=== PATIENT | male | born 1995 | race Caucasian/White ===

== ENCOUNTER 2017-12-18 23:38 | Emergency (ER) | payer MEDICAID ==
[~2017-12-18] VITALS: Ht 182.9 cm; Wt 113.4 kg
[2017-12-18] MEDS ORDERED: KLONOPIN0.5 MG ORAL (23:50)
[2017-12-18] MEDS ORDERED: DIAZEPAM10 MG ORAL (23:50)
[2017-12-18] MEDS ORDERED: RESTORIL7.5 MG ORAL (23:50)
[2017-12-18] MEDS ORDERED: QUETIAPINE FUMA25 MG ORAL (23:50)
[2017-12-18] MEDS ORDERED: ZOLOFT25 MG ORAL (23:50)
[2017-12-18] MEDS ORDERED: HALOPERIDOL0.5 MG ORAL (23:50)
[2017-12-19 00:05] VITALS: BP 125/60
--- NOTE | 2017-12-19 00:37 | Emergency Room Report ---
History of Present Illness General Chief Complaint: Behavioral Complaint Source: Patient Present Illness HPI This is a 22-year-old male with a psych history. He presents with chief complaint of agitation. He is got a new psychiatrist. He was not happy with his psychiatrist because his psychiatrist changes medication around. Haldol was DC. Seroquel was cut down from 400 mg twice a day to 40 mg once a day. His car diazepam was cut down from 2 mg 3 times a day 21 mg 3 times a day. His Xanax was also DC. His Restoril was cut down from 30 mg to 50 mg. His Zoloft was also DC. He is not happy with this because he wanted his dosage back to where was before. He call his sample case porter who told him to go to [facility]. Because his was around a corner he called 911. He said he is not suicidal or homicidal. He just want to be placed back on his medication. He has follow-up with his psych counselor tomorrow. Denies any other complaint. Denies any drug use. Allergies: Coded Allergies: ERYTHROMYCIN BASE (Verified Allergy, Unknown, 12/18/17) Patient History Past Medical History: see triage record, old chart reviewed, psych hx Family History: none Social History: tobacco use Immunizations: other Reviewed Nursing Documentation: PMH: Agreed; PSxH: Agreed Nursing Documentation-PMH Hx Hypertension: Yes History Of Psychiatric Problem: Yes - schizo,psychosis Review of Systems ENT: Denies: sore throat Cardiovascular: Denies: chest pain, palpitations Gastrointestinal/Abdominal: Denies: nausea, vomiting, diarrhea Musculoskeletal: Denies: back problems Skin: Denies: rash Neurological: Denies: MALONEY, seizures All Other Systems: negative except mentioned in HPI Physical Exam Vital Signs Date Time Temp Pulse Resp B/P (MAP) Pulse Ox O2 Delivery O2 Flow Rate FiO2 12/18/17 23:40 98.2 100 18 125/60 100 Room Air 98.2 vitals normal Sp02 EP Interpretation: reviewed, normal General Appearance: alert/responsive, no apparent distress, non-toxic Head: normocephalic, atraumatic Eyes: PERRL, EOMI ENT: oropharynx normal Neck: supple/symm/no masses Respiratory: effort normal, no rhonchi, no wheezing Cardiovascular: no murmur, gallop, rub Gastrointestinal: non-tender, no mass, non-distended, no rebound/guarding, normal bowel sounds Musculoskeletal: gait & station normal Neurologic: oriented x3, sensory intact, motor strength/tone normal Suicide Risk Assessment: Suicidal Ideation: No Had intent to initiate attempt: No Pt's plan for suicide attempt: No Has means to complete attempt: No Skin: no rash, normal palpation Medical Decision Making Diagnostic Impression: Primary Impression: Behavioral disorder ER Course Patient presents with agitation. He said he wants his medication back to the dosing that was before. I explained to the patient that I would not do that because his psychiatrist has him on a plan. On 12/12/2017 he had 30 tablets of Restoril 30 mg from his previous psychiatrist. On 12/13/2017 he picked up 30 tablets of Restoril 15 mg from his current psychiatrist. There is no criteria for 5150. We'll discharge the patient home. Last Vital Signs Date Time Temp Pulse Resp B/P (MAP) Pulse Ox O2 Delivery O2 Flow Rate FiO2 12/18/17 23:40 98.2 100 18 125/60 100 Room Air 98.2 Status: unchanged Disposition: HOME, SELF-CARE Condition: Stable Referrals: NOT CHOSEN [facility]/,REFERRING (PCP) Patient Instructions: Self-Destructive Behavior Additional Instructions: Follow-up with your psychiatrist in one to 2 days. Return if symptom worsen. LISA MILLER M.D. Dec 19, 2017 00:37
[2017-12-19 00:42] VITALS: BP 125/60
== END 2017-12-19 00:42 | disposition home or self-care (01) ==
LOC: EDBD 23:38 → EMR 23:56
DX: F91.9 Conduct disorder, unspecified (principal); I10 Essential (primary) hypertension
CPT/HCPCS: 99283

== ENCOUNTER 2018-04-07 10:50 | Inpatient (IN) | payer MEDICAID ==
[~2018-04-07] VITALS: Ht 177.8 cm; Wt 122.5 kg
[2018-04-07] VITALS (13 sets, daily range): BP systolic 87–121; BP diastolic 33–78
[~2018-04-07 10:50] MED LIST: DIAZEPAM10 MG ORAL; HALOPERIDOL0.5 MG ORAL; KLONOPIN0.5 MG ORAL; QUETIAPINE FUMA25 MG ORAL; RESTORIL7.5 MG ORAL; ZOLOFT25 MG ORAL
[2018-04-07] MEDS ORDERED: Activated Charcoal 50gm/240ml Btl ORAL ONE ×2 (11:00→12:04)
[2018-04-07 11:51] LABS: BASOPHILS % (AUTO) 0.6 % (0.0-2.0); EOSINOPHILS % (AUTO) 0.5 % (0.0-3.0); HEMATOCRIT 51.2 % (42.0-52.0); HEMOGLOBIN 16.9 G/DL (14.2-18.0); LYMPHOCYTES % (AUTO) 37.9 % (20.0-45.0); MEAN CORPUSCULAR VOLUME 91 FL (80-99); MONOCYTES % (AUTO) 4.5 % (1.0-10.0); NEUTROPHILS % (AUTO) 56.5 % (45.0-75.0); PLATELET COUNT 130 K/UL (150-450); RED BLOOD COUNT 5.62 M/UL (4.70-6.10); RED CELL DISTRIBUTION WIDTH 11.7 % (11.6-14.8); WHITE BLOOD COUNT 7.4 K/UL (4.8-10.8)
[2018-04-07 11:53] LABS: APPEARANCE,URINE CLEAR; BILIRUBIN, URINE NEGATIVE (NEGATIVE); COLOR,URINE PALE YELLOW; GLUCOSE, URINE (UA) NEGATIVE (NEGATIVE); KETONES,URINE NEGATIVE (NEGATIVE); LEUKOCYTE ESTERASE ,URINE NEGATIVE (NEGATIVE); NITRITE,URINE NEGATIVE (NEGATIVE); PH,URINE 6 (4.5-8.0); PROTEIN,URINE 1+ (NEGATIVE); UROBILINOGEN,URINE NORMAL MG/DL (0.0-1.0)
[2018-04-07 12:05] LABS: ANION GAP 15 mmol/L (5-15); BLOOD UREA NITROGEN 9 mg/dL (7-18); CALCIUM 9.5 MG/DL (8.5-10.1); CARBON DIOXIDE 21 MMOL/L (21-32); CHLORIDE 105 MMOL/L (98-107); POTASSIUM 3.6 MMOL/L (3.5-5.1); SODIUM 141 MMOL/L (136-145)
[2018-04-07 12:09] LABS: ALANINE AMINOTRANSFERASE 30 U/L (12-78); ALBUMIN 4.1 G/DL (3.4-5.0); ALBUMIN/GLOBULIN RATIO 1.1 (1.0-2.7); ALKALINE PHOSPHATASE 77 U/L (46-116); ASPARTATE AMINO TRANSFERASE 25 U/L (15-37); BILIRUBIN,TOTAL 0.5 MG/DL (0.2-1.0)
[2018-04-07] MEDS ORDERED: Lidocaine 2% 100mg/5ml Carp ONE (12:23)
--- NOTE | 2018-04-07 12:23 | Emergency Room Report ---
History of Present Illness General Chief Complaint: Overdose Source: Patient, Family Member Present Illness HPI Patient presents after overdosing on multiple medications. Many allegedly were not his. He has 2 bottles of Flexeril - large quantities, now empty. He also was drinking alcohol. He states he took about 180 tablets. At the time he wanted to end his life. He states right now he is asking for help. He says he took it anywhere from 45 minutes ago to 2 hours. Dad feels stopping Thorazine 1-2 weeks ago may have contributed. Denies pain. No vomiting after ingestion. Not answering many questions. Seen 12/18/17 requesting more Restoril, but had fill 2 prescriptions. History from then: This is a 22-year-old male with a psych history. He presents with chief complaint of agitation. He is got a new psychiatrist. He was not happy with his psychiatrist because his psychiatrist changes medication around. Haldol was DC. Seroquel was cut down from 400 mg twice a day to 40 mg once a day. His car diazepam was cut down from 2 mg 3 times a day 21 mg 3 times a day. His Xanax was also DC. His Restoril was cut down from 30 mg to 50 mg. His Zoloft was also DC. He is not happy with this because he wanted his dosage back to where was before. He call his special education case manager who told him to go to [facility]. Because his was around a corner he called 911. He said he is not suicidal or homicidal. He just want to be placed back on his medication. He has follow-up with his psych counselor tomorrow. Denies any other complaint. Denies any drug use. Allergies: Coded Allergies: ERYTHROMYCIN BASE (Verified Allergy, Unknown, 12/18/17) LORAZEPAM (Verified Allergy, Unknown, 04/07/18) Patient History Limited by: medical condition Past Medical History: see triage record Social History: Reports: alcohol use, drug use; Denies: smoking Reviewed Nursing Documentation: PMH: Agreed; PSxH: Agreed Nursing Documentation-PMH Past Medical History: No History, Except For Hx Hypertension: Yes History Of Psychiatric Problem: Yes Review of Systems All Other Systems: limited Physical Exam Vital Signs Date Time Temp Pulse Resp B/P (MAP) Pulse Ox O2 Delivery O2 Flow Rate FiO2 04/07/18 10:49 98.6 72 14 123/69 99 Room Air Sp02 EP Interpretation: reviewed, normal General Appearance: no apparent distress, other - slurred speech Head: normocephalic, atraumatic Eyes: bilateral eye PERRL, bilateral eye Scleral Injection ENT: moist mucus membranes Neck: full range of motion Respiratory: lungs clear, normal breath sounds Cardiovascular #1: tachycardia Cardiovascular #2: 2+ radial (L) Gastrointestinal: non tender, non-distended, decreased bowel sounds, overweight Musculoskeletal: back normal, normal range of motion, other - unsteady on feet Neurologic: oriented x3, motor strength/tone normal, sensory intact, other - lethargic but sits. + gag, Ataxic, slurred words Psychiatric: depressed affect Suicide Risk Assessment: Suicidal Ideation: Yes Had intent to initiate attempt: Yes Pt's plan for suicide attempt: Yes Has means to complete attempt: Yes Skin: no rash Procedures Critical Care Time Critical Care Time Total Critical Care Time: 90 min bedside evaluation and treatment excludes procedures (EKG, intubation). Reason for critical care: OD, resp failure Possible complications: hypotension, hypertension, OH, shock, arrhythmias, metabolic acidosis, end organ damage, respiratory failure. Interventions: IV hydration, intubation, gastric lavage and charcoal Course: Patient post polypharmacy OD. Initially awake and charcoal ordered. Stupor and not protect airway - intubation. OG placed and lavage and charcoal under my direction. Discussion with admitting MD and also several discussions with Dad. Sedation begun as coughing on tube. Improved but critical. Poison control consulted. Consultations: nursing staff, EMS, family, RT, poison control Performed by: Dr. Sung Tolerated well condition = critical Intubation Intubation : Consent: Emergent Intubation Method: orotracheal Tube Size (cm): 7.5 Medications: Rocuronium Breath Sounds after Intubation: equal Post Intubation Xray: Yes Attempts: One Patient Tolerated: Well Complications: None Progress Because of clenched teeth, Rocuronium given. After, intubation with ease 12:24 Medical Decision Making Diagnostic Impression: Primary Impression: Drug overdose Qualified Codes: T50.902A - Poisoning by unspecified drugs, medicaments and biological substances, intentional self-harm, initial encounter Additional Impressions: Stupor Respiratory failure Qualified Codes: J96.01 - Acute respiratory failure with hypoxia; J96.02 - Acute respiratory failure with hypercapnia ER Course Patient presents soon after intentional OD on multiple medications and alcohol. DDx: Suicide gesture, exacerbation of schizoaffective disorder, alcohol intoxication, electrolyte abnormalities, polypharmacy overdose amongst others. Patient is awake at the moment and charcoal has been ordered. He recently ingested the pills and will be observed for possible respiratory depression. When awake he will need psychiatric evaluation. At this point, supportive care and work to give charcoal. EKG with ST without QT prolongation. CXR poor inspiration. BAL elevated. Tox + benzos. Before receiving [place], patient more somnolent. Abscent Gag. Min response to stimuli. Intubated. CXR good placement. Discussed with Dad. OG tube with lavage and Charcoal instilled. White fluid without pill fragments. Some cough. Lidocaine inhaled. Also sedation ordered. Noted "lorazepam" allergy which dad states was to stop benzos. Versed drip ordered. Admit ICU Dr. Menjivar. Sedation working. Less tachycardia. NS hydration continuing. Discussed with Dad again with Dr. Way. Midazolam drip ordered. Laboratory Tests Test 04/07/18 11:40 04/07/18 13:30 White Blood Count 7.4 K/UL (4.8-10.8) Red Blood Count 5.62 M/UL (4.70-6.10) Hemoglobin 16.9 G/DL (14.2-18.0) Hematocrit 51.2 % (42.0-52.0) Mean Corpuscular Volume 91 FL (80-99) Mean Corpuscular Hemoglobin 30.1 PG (27.0-31.0) Mean Corpuscular Hemoglobin Concent 33.0 G/DL (32.0-36.0) Red Cell Distribution Width 11.7 % (11.6-14.8) Platelet Count 130 K/UL (150-450) L Mean Platelet Volume 7.8 FL (6.5-10.1) Neutrophils (%) (Auto) 56.5 % (45.0-75.0) Lymphocytes (%) (Auto) 37.9 % (20.0-45.0) Monocytes (%) (Auto) 4.5 % (1.0-10.0) Eosinophils (%) (Auto) 0.5 % (0.0-3.0) Basophils (%) (Auto) 0.6 % (0.0-2.0) Urine Color Pale yellow Urine Appearance Clear Urine pH 6 (4.5-8.0) Urine Specific [place] 1.010 (1.005-1.035) Urine Protein 1+ (NEGATIVE) H Urine Glucose (UA) Negative (NEGATIVE) Urine Ketones Negative (NEGATIVE) Urine Blood Negative (NEGATIVE) Urine Nitrite Negative (NEGATIVE) Urine Bilirubin Negative (NEGATIVE) Urine Urobilinogen Normal MG/DL (0.0-1.0) Urine Leukocyte Esterase Negative (NEGATIVE) Urine RBC 0 /HPF (0 - 0) Urine WBC 0-2 /HPF (0 - 0) Urine Squamous Epithelial Cells None /LPF (NONE/OCC) Urine Bacteria None /HPF (NONE) Sodium Level 141 MMOL/L (136-145) Potassium Level 3.6 MMOL/L (3.5-5.1) Chloride Level 105 MMOL/L (98-107) Carbon Dioxide Level 21 MMOL/L (21-32) Anion Gap 15 mmol/L (5-15) Blood Urea Nitrogen 9 mg/dL (7-18) Creatinine 1.0 MG/DL (0.55-1.30) Estimate Glomerular Filtration Rate > 60 mL/min (>60) Glucose Level 99 MG/DL (74-106) Calcium Level 9.5 MG/DL (8.5-10.1) Total Bilirubin 0.5 MG/DL (0.2-1.0) Aspartate Amino Transferase (AST) 25 U/L (15-37) Alanine Aminotransferase (ALT) 30 U/L (12-78) Alkaline Phosphatase 77 U/L (46-116) Total Protein 7.8 G/DL (6.4-8.2) Albumin 4.1 G/DL (3.4-5.0) Globulin 3.7 g/dL Albumin/Globulin Ratio 1.1 (1.0-2.7) Salicylates Level 4.1 ug/mL (2.8-20) Urine Opiates Screen Negative (NEGATIVE) Acetaminophen Level < 2 MCG/ML (10-30) L Urine Barbiturates Screen Negative (NEGATIVE) Phencyclidine (PCP) Screen Negative (NEGATIVE) Urine Amphetamines Screen Negative (NEGATIVE) Urine Benzodiazepines Screen Positive (NEGATIVE) H Urine Cocaine Screen Negative (NEGATIVE) Urine Marijuana (THC) Screen Negative (NEGATIVE) Serum Alcohol 232 mg/dL Arterial Blood pH 7.349 (7.350-7.450) Arterial Blood Partial Pressure CO2 35.3 mmHg (35.0-45.0) Arterial Blood Partial Pressure O2 157.7 mmHg (75.0-100.0) H Arterial Blood HCO3 19.0 mmol/L (22.0-26.0) L Arterial Blood Oxygen Saturation 98.7 % (95-100) Arterial Blood Base Excess -5.7 (-2-2) L Raul Test N/a EKG Diagnostic Results Rate: tachycardiac ST Segments: no acute changes Rhythm Strip Diag. Results EP Interpretation: yes Rhythm: no PVC's, no ectopy, other - ST Chest X-Ray Diagnostic Results Chest X-Ray Diagnostic Results #1: Chest X-Ray Ordered: Yes # of Views/Limited/Complete: 1 View Indication: Other EP Interpretation: Yes Interpretation: no consolidation, no effusion, no pneumothorax, other - poor insp Impression: Other Electronically Signed by: Electronically signed by Ankush Sung MD Chest X-Ray Diagnostic Results #2: Chest X-Ray Ordered: Yes # of Views/Limited/Complete: 1 View Indication: Other EP Interpretation: Yes Interpretation: no consolidation, no effusion, no pneumothorax, other - ET good Impression: Other Electronically Signed by: Electronically signed by Ankush Sung MD Other X-Ray Diagnostic Results Other X-Ray Diagnostic Results : X-Ray ordered: abd # of Views/Limited Vs Complete: 1 View Indication: Other EP Interpretation: Yes Interpretation: nonspecific bowel gas, no sbo, other - NG in place Impression: Other Electronically Signed by: Electronically signed by Ankush Sung MD Last Vital Signs Date Time Temp Pulse Resp B/P (MAP) Pulse Ox O2 Delivery O2 Flow Rate FiO2 04/07/18 16:48 118 16 30 04/07/18 16:43 97.8 115/67 100 Endotracheal Tube 04/07/18 16:30 60.0 Status: improved Disposition: ADMITTED INPATIENT Condition: Critical [facility]errals: [facility]ERR[facility] (PCP) Ankush Sung MD Apr 07, 2018 12:23
[2018-04-07] MEDS ORDERED: Zemuron 50mg/5ml Inj IV ONE ×2 (12:30→17:45)
--- NOTE | 2018-04-07 14:04 | Diagnostic Imaging Report ---
EXAM: XR Chest, 1 View CLINICAL HISTORY: S/P INTUB TECHNIQUE: Frontal view of the chest. COMPARISON: No relevant prior studies available. FINDINGS: Lungs: Reduced lung volumes. Bilateral airspace opacities. Pleural space: Unremarkable. No pneumothorax. Heart: Unremarkable. No cardiomegaly. Mediastinum: Unremarkable. Bones/joints: No acute fracture. Tubes, lines and devices: Endotracheal tube about 3.3 cm above the farrah. IMPRESSION: 1. Endotracheal tube about 3.3 cm above the farrah. 2. Reduced lung volumes. Bilateral airspace opacities. Could be edema or pneumonia. There is a broader differential.
[2018-04-07] MEDS ORDERED: Lidocaine 1% MPF 10mg/ml 5ml HHN ONE (14:30)
--- NOTE | 2018-04-07 14:34 | Diagnostic Imaging Report ---
EXAM: XR Abdomen, 1 View CLINICAL HISTORY: TUBE PLCMT TECHNIQUE: Frontal supine view of the abdomen/pelvis. COMPARISON: No relevant prior studies available. FINDINGS: Gastrointestinal tract: Nonspecific bowel gas pattern with the relative paucity of small bowel gas. There is a distended small bowel loop in the central abdomen. Bones/joints: No acute fracture. Tubes, lines and devices: Enteric tube in the stomach. IMPRESSION: Enteric tube in the stomach.
[2018-04-07] MEDS ORDERED: Midazolam 2mg/2ml Inj IVP ONE (15:15)
[2018-04-07] MEDS ORDERED: THORAZINE10 MG PO (15:42)
[2018-04-07] MEDS ORDERED: BENZTROPINE ME0.5 MG PO (15:42)
[2018-04-07] MEDS ORDERED: SERTRALINE HCL25 MG ORAL (15:42)
[2018-04-07] MEDS ORDERED: TEMAZEPAM15 MG ORAL (15:42)
[2018-04-07] MEDS ORDERED: GABAPENTIN600 MG ORAL (15:42)
[2018-04-07] MEDS: Midazolam/D5W 100ml 100 ML IVPB SCH ×2 (15:58→22:21)
[2018-04-07 19:39] LABS: ANION GAP 14 mmol/L (5-15); BLOOD UREA NITROGEN 10 mg/dL (7-18); CALCIUM 8.6 MG/DL (8.5-10.1); CARBON DIOXIDE 22 MMOL/L (21-32); CHLORIDE 110 MMOL/L (98-107); CREATININE 0.9 MG/DL (0.55-1.30); POTASSIUM 3.5 MMOL/L (3.5-5.1); SODIUM 146 MMOL/L (136-145)
[2018-04-07 19:44] LABS: CREATINE KINASE 71 U/L (26-308)
--- NOTE | 2018-04-07 20:04 | Consultation ---
Consult Note Assessment/Plan #[id number] vdrf overdose with flexeril, UDS + benzos schizoaffectio DO hypotnesion sedation sp charcol lavage prn nebs vent for now reeapt CXR and abg in [facility] labs Elizabeth Cole DO Apr 07, 2018 20:04
[2018-04-07] MEDS: MULTIVITAMIN IV SCH (20:17)
[2018-04-07] MEDS: [UNRECOGNIZED DRUG - OTHER] IV SCH (20:17)
[2018-04-07] MEDS: KCL IV SCH (20:17)
[2018-04-07] MEDS: D5 IV SCH (20:17)
[2018-04-08] VITALS (26 sets, daily range): BP systolic 83–128; BP diastolic 23–79
[2018-04-08] MEDS: D5 1/2NS w/KCl 20mEq 1,000 ML IV SCH ×5 (01:22→21:00)
[2018-04-08] MEDS: Midazolam/D5W 100ml 100 ML IVPB SCH (04:32)
[2018-04-08 05:57] LABS: BASOPHILS % (AUTO) 0.4 % (0.0-2.0); EOSINOPHILS % (AUTO) 0.2 % (0.0-3.0); HEMATOCRIT 41.6 % (42.0-52.0); HEMOGLOBIN 14.2 G/DL (14.2-18.0); LYMPHOCYTES % (AUTO) 19.4 % (20.0-45.0); MEAN CORPUSCULAR VOLUME 90 FL (80-99); MONOCYTES % (AUTO) 4.4 % (1.0-10.0); NEUTROPHILS % (AUTO) 75.5 % (45.0-75.0); PLATELET COUNT 121 K/UL (150-450); RED CELL DISTRIBUTION WIDTH 12.2 % (11.6-14.8); WHITE BLOOD COUNT 8.6 K/UL (4.8-10.8)
[2018-04-08 07:07] LABS: ALANINE AMINOTRANSFERASE 25 U/L (12-78); ALBUMIN 3.5 G/DL (3.4-5.0); ALBUMIN/GLOBULIN RATIO 1.2 (1.0-2.7); ALKALINE PHOSPHATASE 64 U/L (46-116); ANION GAP 4 mmol/L (5-15); ASPARTATE AMINO TRANSFERASE 15 U/L (15-37); BILIRUBIN,TOTAL 0.5 MG/DL (0.2-1.0); BLOOD UREA NITROGEN 7 mg/dL (7-18); CALCIUM 8.9 MG/DL (8.5-10.1); CARBON DIOXIDE 21 MMOL/L (21-32); CHLORIDE 114 MMOL/L (98-107); CREATINE KINASE 115 U/L (26-308); PHOSPHORUS 3.2 MG/DL (2.5-4.9); POTASSIUM 3.7 MMOL/L (3.5-5.1); SODIUM 139 MMOL/L (136-145)
[2018-04-08] MEDS: Midazolam/D5W 100ml 100 ML IVPB PRN ×6 (08:20→23:27)
[2018-04-08] MEDS ORDERED: Tubing IV Secondary IV ONE (16:12)
[2018-04-08] MEDS: chlorproMAZINE 25mg tab ORAL SCH (18:12)
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
--- NOTE | 2018-04-08 19:15 | Pulmonolgy Critical Care Note ---
Critical Care - Asmt/Plan Assessment/Plan: vdrf intubated for airway protection overdose with Flexeril, UDS + benzos schizoaffective DO hypotension weaning protocol at this time, if stable in am, plan for extubation nebs NPO sedation needs psych eval Respiratory: CXR, ABG Cardiac: continue to monitor HR/BP Renal: F/U I&O Disposition: keep in ICU Time Spent (Minutes): 50 Notes Reviewed: sales hunter, renal Discussed with: nurses Critical Care - Objective Last 24 Hour Vital Signs Date Time Temp Pulse Resp B/P (MAP) Pulse Ox O2 Delivery O2 Flow Rate FiO2 04/08/18 19:00 104 9 110/50 (70) 99 04/08/18 18:55 16 Mechanical Ventilator 04/08/18 18:00 16 Mechanical Ventilator 04/08/18 18:00 105 17 110/61 (77) 100 04/08/18 17:00 106 18 119/63 (81) 100 04/08/18 17:00 16 Mechanical Ventilator 04/08/18 16:37 105 17 25 04/08/18 16:31 15 Mechanical Ventilator 04/08/18 16:00 106 04/08/18 16:00 98.0 106 16 109/54 (72) 98 04/08/18 16:00 Room Air 04/08/18 16:00 30 04/08/18 16:00 98.0 04/08/18 15:00 111 15 112/68 (83) 100 04/08/18 15:00 18 Mechanical Ventilator 04/08/18 14:46 112 20 25 04/08/18 14:09 18 Mechanical Ventilator 04/08/18 14:00 112 19 88/49 (62) 99 04/08/18 13:00 20 Mechanical Ventilator 04/08/18 13:00 109 16 92/42 (59) 98 04/08/18 12:47 111 16 25 04/08/18 12:00 111 04/08/18 12:00 97.8 114 19 83/46 (58) 99 04/08/18 12:00 Room Air 04/08/18 12:00 20 Mechanical Ventilator 04/08/18 12:00 30 04/08/18 11:24 115 19 25 04/08/18 11:08 21 Mechanical Ventilator 04/08/18 11:00 114 16 104/51 (68) 99 04/08/18 10:00 16 Mechanical Ventilator 04/08/18 10:00 114 16 96/39 (58) 99 04/08/18 09:52 25 04/08/18 09:21 114 16 30 04/08/18 09:00 116 16 101/48 (65) 98 04/08/18 09:00 16 Mechanical Ventilator 04/08/18 08:20 16 Mechanical Ventilator 04/08/18 08:00 98.0 124 18 86/69 (75) 99 04/08/18 08:00 30 04/08/18 08:00 Room Air 04/08/18 08:00 116 04/08/18 07:00 121 17 126/68 (87) 100 04/08/18 07:00 23 04/08/18 06:58 121 16 30 04/08/18 06:00 122 15 123/60 (81) 99 04/08/18 06:00 16 Room Air 04/08/18 05:22 128 19 30 04/08/18 05:00 119 19 124/65 (84) 99 04/08/18 05:00 16 Room Air 04/08/18 04:32 15 Room Air 04/08/18 04:00 116 04/08/18 04:00 21 Room Air 04/08/18 04:00 30 04/08/18 04:00 30 04/08/18 04:00 Room Air 04/08/18 04:00 98.0 119 17 111/71 (84) 100 04/08/18 03:20 132 19 30 04/08/18 03:00 119 20 86/66 (73) 99 04/08/18 03:00 18 Room Air 04/08/18 02:00 18 Room Air 04/08/18 02:00 119 13 100/79 (86) 100 04/08/18 01:05 113 18 30 04/08/18 01:00 18 Room Air 04/08/18 01:00 105 16 100/79 (86) 100 04/08/18 00:48 30 04/08/18 00:00 107 16 88/33 (51) 100 04/08/18 00:00 16 Room Air 04/08/18 00:00 30 04/08/18 00:00 Room Air 04/08/18 00:00 107 04/07/18 23:04 108 16 30 04/07/18 23:00 98.2 108 18 102/41 (61) 99 04/07/18 23:00 16 Room Air 04/07/18 22:21 16 Room Air 04/07/18 22:00 19 Room Air 04/07/18 22:00 103 18 107/45 (65) 99 04/07/18 21:00 16 Room Air 04/07/18 21:00 106 18 110/42 (64) 100 04/07/18 20:40 97 16 30 04/07/18 20:00 Room Air 04/07/18 20:00 97.0 102 16 121/57 (78) 100 04/07/18 20:00 16 Room Air 04/07/18 19:22 96 16 30 Status: awake Lungs: clear Heart: regular Abdomen: non-tender Extremities: edema Critical Care - Subjective ROS Limited/Unobtainable: Yes Condition: critical, improving Vent Support Breath Rate: 16 Vent Support Mode: AC Vent Tidal Volume: 700 Sputum Amount: None PEEP: 5.0 PIP: 33 I&O: Intake and Output 04/07/18 04/08/18 19:00 07:00 Intake Total 1000 ml 1850 ml Output Total 100 ml 765 ml Balance 900 ml 1085 ml Intake IV Total 1000 ml 1850 ml Output Urine Total 100 ml 465 ml Gastric Drainage Total 300 ml # Voids 1 Subjective: awake follows commands on vent on max versed (allergic to ativan) no bleeding CXR: xray completed no report available ET-Tube: 7.5 ET Position: 25 Labs: Current Medications Medications (Trade) Dose Ordered Sig/Pritesh Route PRN Reason Start Time Stop Time Status Last Admin Dose Admin Chlorpromazine (Thorazine) 200 mg BID ORAL 04/08/18 18:00 05/08/18 17:59 04/08/18 18:12 Dextrose/ Electrolytes 1,000 ml @ 200 mls/hr Q5H IV 04/08/18 01:00 05/08/18 00:59 04/08/18 16:19 Famotidine (Pepcid I.v.) 20 mg Q24H IVP 04/07/18 20:00 05/07/18 19:59 04/07/18 20:50 Gabapentin (Neurontin) 600 mg THREE TIMES A DAY ORAL 04/08/18 13:00 05/08/18 12:59 04/08/18 13:00 Midazolam HCl 100 ml @ 0 mls/hr Q24H PRN IVPB agitation 04/08/18 08:30 04/15/18 08:29 04/08/18 18:55 Multivitamins 10 ml/Dextrose/ Electrolytes 1,010 ml @ 200 mls/hr Q24H IV 04/07/18 20:00 05/07/18 19:59 04/07/18 20:17 Sertraline HCl (Zoloft) 200 mg DAILY ORAL 04/09/18 09:00 05/09/18 08:59 Laboratory Tests Test 04/08/18 04:25 04/08/18 08:05 White Blood Count 8.6 K/UL (4.8-10.8) Red Blood Count 4.60 M/UL (4.70-6.10) L Hemoglobin 14.2 G/DL (14.2-18.0) Hematocrit 41.6 % (42.0-52.0) L Mean Corpuscular Volume 90 FL (80-99) Mean Corpuscular Hemoglobin 30.8 PG (27.0-31.0) Mean Corpuscular Hemoglobin Concent 34.0 G/DL (32.0-36.0) Red Cell Distribution Width 12.2 % (11.6-14.8) Platelet Count 121 K/UL (150-450) L Mean Platelet Volume 8.1 FL (6.5-10.1) Neutrophils (%) (Auto) 75.5 % (45.0-75.0) H Lymphocytes (%) (Auto) 19.4 % (20.0-45.0) L Monocytes (%) (Auto) 4.4 % (1.0-10.0) Eosinophils (%) (Auto) 0.2 % (0.0-3.0) Basophils (%) (Auto) 0.4 % (0.0-2.0) Sodium Level 139 MMOL/L (136-145) Potassium Level 3.7 MMOL/L (3.5-5.1) Chloride Level 114 MMOL/L (98-107) H Carbon Dioxide Level 21 MMOL/L (21-32) Anion Gap 4 mmol/L (5-15) L Blood Urea Nitrogen 7 mg/dL (7-18) Creatinine 1.0 MG/DL (0.55-1.30) Estimat Glomerular Filtration Rate > 60 mL/min (>60) Glucose Level 97 MG/DL (74-106) Calcium Level 8.9 MG/DL (8.5-10.1) Phosphorus Level 3.2 MG/DL (2.5-4.9) Magnesium Level 1.5 MG/DL (1.8-2.4) L Total Bilirubin 0.5 MG/DL (0.2-1.0) Aspartate Amino Transf (AST/SGOT) 15 U/L (15-37) Alanine Aminotransferase (ALT/SGPT) 25 U/L (12-78) Alkaline Phosphatase 64 U/L (46-116) Total Creatine Kinase 115 U/L (26-308) Total Protein 6.5 G/DL (6.4-8.2) Albumin 3.5 G/DL (3.4-5.0) Globulin 3.0 g/dL Albumin/Globulin Ratio 1.2 (1.0-2.7) Arterial Blood pH 7.405 (7.350-7.450) Arterial Blood Partial Pressure CO2 30.5 mmHg (35.0-45.0) L Arterial Blood Partial Pressure O2 111.2 mmHg (75.0-100.0) H Arterial Blood HCO3 18.7 mmol/L (22.0-26.0) L Arterial Blood Oxygen Saturation 97.8 % (95-100) Arterial Blood Base Excess -4.8 (-2-2) L Raul Test Positive Elizabeth Cole DO Apr 08, 2018 19:15
--- NOTE | 2018-04-08 19:51 | Pulmonolgy Critical Care Note ---
Critical Care - Asmt/Plan Assessment/Plan: vdrf intubated for airway protection overdose with Flexeril, UDS + benzos schizoaffective DO hypotension weaning protocol at this time, if stable in am, plan for extubation nebs NPO sedation needs psych eval Respiratory: CXR, ABG, weaning trial Cardiac: continue to monitor HR/BP Time Spent (Minutes): 60 Notes Reviewed: materials assistant Discussed with: nurses Critical Care - Objective Last 24 Hour Vital Signs Date Time Temp Pulse Resp B/P (MAP) Pulse Ox O2 Delivery O2 Flow Rate FiO2 04/08/18 19:30 104 18 25 04/08/18 19:00 104 9 110/50 (70) 99 04/08/18 18:55 16 Mechanical Ventilator 04/08/18 18:00 16 Mechanical Ventilator 04/08/18 18:00 105 17 110/61 (77) 100 04/08/18 17:00 106 18 119/63 (81) 100 04/08/18 17:00 16 Mechanical Ventilator 04/08/18 16:37 105 17 25 04/08/18 16:31 15 Mechanical Ventilator 04/08/18 16:00 106 04/08/18 16:00 98.0 106 16 109/54 (72) 98 04/08/18 16:00 Room Air 04/08/18 16:00 30 04/08/18 16:00 98.0 04/08/18 15:00 111 15 112/68 (83) 100 04/08/18 15:00 18 Mechanical Ventilator 04/08/18 14:46 112 20 25 04/08/18 14:09 18 Mechanical Ventilator 04/08/18 14:00 112 19 88/49 (62) 99 04/08/18 13:00 20 Mechanical Ventilator 04/08/18 13:00 109 16 92/42 (59) 98 04/08/18 12:47 111 16 25 04/08/18 12:00 111 04/08/18 12:00 97.8 114 19 83/46 (58) 99 04/08/18 12:00 Room Air 04/08/18 12:00 20 Mechanical Ventilator 04/08/18 12:00 30 04/08/18 11:24 115 19 25 04/08/18 11:08 21 Mechanical Ventilator 04/08/18 11:00 114 16 104/51 (68) 99 04/08/18 10:00 16 Mechanical Ventilator 04/08/18 10:00 114 16 96/39 (58) 99 04/08/18 09:52 25 04/08/18 09:21 114 16 30 04/08/18 09:00 116 16 101/48 (65) 98 04/08/18 09:00 16 Mechanical Ventilator 04/08/18 08:20 16 Mechanical Ventilator 04/08/18 08:00 98.0 124 18 86/69 (75) 99 04/08/18 08:00 30 04/08/18 08:00 Room Air 04/08/18 08:00 116 04/08/18 07:00 121 17 126/68 (87) 100 04/08/18 07:00 23 04/08/18 06:58 121 16 30 04/08/18 06:00 122 15 123/60 (81) 99 04/08/18 06:00 16 Room Air 04/08/18 05:22 128 19 30 04/08/18 05:00 119 19 124/65 (84) 99 04/08/18 05:00 16 Room Air 04/08/18 04:32 15 Room Air 04/08/18 04:00 116 04/08/18 04:00 21 Room Air 04/08/18 04:00 30 04/08/18 04:00 30 04/08/18 04:00 Room Air 04/08/18 04:00 98.0 119 17 111/71 (84) 100 04/08/18 03:20 132 19 30 04/08/18 03:00 119 20 86/66 (73) 99 04/08/18 03:00 18 Room Air 04/08/18 02:00 18 Room Air 04/08/18 02:00 119 13 100/79 (86) 100 04/08/18 01:05 113 18 30 04/08/18 01:00 18 Room Air 04/08/18 01:00 105 16 100/79 (86) 100 04/08/18 00:48 30 04/08/18 00:00 107 16 88/33 (51) 100 04/08/18 00:00 16 Room Air 04/08/18 00:00 30 04/08/18 00:00 Room Air 04/08/18 00:00 107 04/07/18 23:04 108 16 30 04/07/18 23:00 98.2 108 18 102/41 (61) 99 04/07/18 23:00 16 Room Air 04/07/18 22:21 16 Room Air 04/07/18 22:00 19 Room Air 04/07/18 22:00 103 18 107/45 (65) 99 04/07/18 21:00 16 Room Air 04/07/18 21:00 106 18 110/42 (64) 100 04/07/18 20:40 97 16 30 04/07/18 20:00 Room Air 04/07/18 20:00 97.0 102 16 121/57 (78) 100 04/07/18 20:00 16 Room Air Status: awake Condition: critical, improving Lungs: clear Heart: HR/BP stable Abdomen: soft, non-tender Extremities: no C/C/E Critical Care - Subjective ROS Limited/Unobtainable: Yes Condition: improving FI02: 25 Vent Support Breath Rate: 16 Vent Support Mode: AC Vent Tidal Volume: 700 Sputum Amount: None PEEP: 5.0 PIP: 30 I&O: Intake and Output 04/07/18 04/08/18 19:00 07:00 Intake Total 1000 ml 1850 ml Output Total 100 ml 765 ml Balance 900 ml 1085 ml Intake IV Total 1000 ml 1850 ml Output Urine Total 100 ml 465 ml Gastric Drainage Total 300 ml # Voids 1 Subjective: awake follows commands on vent on max versed (allergic to ativan) no bleeding ET-Tube: 7.5 ET Position: 25 Labs: Current Medications Medications (Trade) Dose Ordered Sig/Pritesh Route PRN Reason Start Time Stop Time Status Last Admin Dose Admin Chlorpromazine (Thorazine) 200 mg BID ORAL 04/08/18 18:00 05/08/18 17:59 04/08/18 18:12 Dextrose/ Electrolytes 1,000 ml @ 200 mls/hr Q5H IV 04/08/18 01:00 05/08/18 00:59 04/08/18 16:19 Famotidine (Pepcid I.v.) 20 mg Q24H IVP 04/07/18 20:00 05/07/18 19:59 04/07/18 20:50 Gabapentin (Neurontin) 600 mg THREE TIMES A DAY ORAL 04/08/18 13:00 1/29/19 12:59 04/08/18 13:00 Midazolam HCl 100 ml @ 0 mls/hr Q24H PRN IVPB agitation 04/08/18 08:30 04/15/18 08:29 04/08/18 18:55 Multivitamins 10 ml/Dextrose/ Electrolytes 1,010 ml @ 200 mls/hr Q24H IV 04/07/18 20:00 05/07/18 19:59 04/07/18 20:17 Sertraline HCl (Zoloft) 200 mg DAILY ORAL 04/09/18 09:00 05/09/18 08:59 Laboratory Tests Test 04/08/18 04:25 04/08/18 08:05 White Blood Count 8.6 K/UL (4.8-10.8) Red Blood Count 4.60 M/UL (4.70-6.10) L Hemoglobin 14.2 G/DL (14.2-18.0) Hematocrit 41.6 % (42.0-52.0) L Mean Corpuscular Volume 90 FL (80-99) Mean Corpuscular Hemoglobin 30.8 PG (27.0-31.0) Mean Corpuscular Hemoglobin Concent 34.0 G/DL (32.0-36.0) Red Cell Distribution Width 12.2 % (11.6-14.8) Platelet Count 121 K/UL (150-450) L Mean Platelet Volume 8.1 FL (6.5-10.1) Neutrophils (%) (Auto) 75.5 % (45.0-75.0) H Lymphocytes (%) (Auto) 19.4 % (20.0-45.0) L Monocytes (%) (Auto) 4.4 % (1.0-10.0) Eosinophils (%) (Auto) 0.2 % (0.0-3.0) Basophils (%) (Auto) 0.4 % (0.0-2.0) Sodium Level 139 MMOL/L (136-145) Potassium Level 3.7 MMOL/L (3.5-5.1) Chloride Level 114 MMOL/L (98-107) H Carbon Dioxide Level 21 MMOL/L (21-32) Anion Gap 4 mmol/L (5-15) L Blood Urea Nitrogen 7 mg/dL (7-18) Creatinine 1.0 MG/DL (0.55-1.30) Estimat Glomerular Filtration Rate > 60 mL/min (>60) Glucose Level 97 MG/DL (74-106) Calcium Level 8.9 MG/DL (8.5-10.1) Phosphorus Level 3.2 MG/DL (2.5-4.9) Magnesium Level 1.5 MG/DL (1.8-2.4) L Total Bilirubin 0.5 MG/DL (0.2-1.0) Aspartate Amino Transf (AST/SGOT) 15 U/L (15-37) Alanine Aminotransferase (ALT/SGPT) 25 U/L (12-78) Alkaline Phosphatase 64 U/L (46-116) Total Creatine Kinase 115 U/L (26-308) Total Protein 6.5 G/DL (6.4-8.2) Albumin 3.5 G/DL (3.4-5.0) Globulin 3.0 g/dL Albumin/Globulin Ratio 1.2 (1.0-2.7) Arterial Blood pH 7.405 (7.350-7.450) Arterial Blood Partial Pressure CO2 30.5 mmHg (35.0-45.0) L Arterial Blood Partial Pressure O2 111.2 mmHg (75.0-100.0) H Arterial Blood HCO3 18.7 mmol/L (22.0-26.0) L Arterial Blood Oxygen Saturation 97.8 % (95-100) Arterial Blood Base Excess -4.8 (-2-2) L Raul Test Positive Elizabeth Cole DO Apr 08, 2018 19:51
[2018-04-08] MEDS: [UNRECOGNIZED DRUG - OTHER] IV SCH ×2 (20:00→21:00)
[2018-04-08] MEDS: MULTIVITAMIN IV SCH ×2 (20:00→21:00)
[2018-04-08] MEDS: KCL IV SCH ×2 (20:00→21:00)
[2018-04-08] MEDS: D5 IV SCH ×2 (20:00→21:00)
[2018-04-09] VITALS (17 sets, daily range): BP systolic 97–156; BP diastolic 22–96
[2018-04-09] MEDS: D5 1/2NS w/KCl 20mEq 1,000 ML IV SCH ×3 (03:31→17:15)
[2018-04-09 06:28] LABS: HEMATOCRIT 36.4 % (42.0-52.0); HEMOGLOBIN 12.3 G/DL (14.2-18.0); MEAN CORPUSCULAR VOLUME 92 FL (80-99); PLATELET COUNT 94 K/UL (150-450); RED BLOOD COUNT 3.98 M/UL (4.70-6.10); RED CELL DISTRIBUTION WIDTH 11.9 % (11.6-14.8); WHITE BLOOD COUNT 6.4 K/UL (4.8-10.8)
[2018-04-09 07:19] LABS: ALANINE AMINOTRANSFERASE 23 U/L (12-78); ALBUMIN 3.2 G/DL (3.4-5.0); ALKALINE PHOSPHATASE 59 U/L (46-116); ANION GAP 10 mmol/L (5-15); ASPARTATE AMINO TRANSFERASE 11 U/L (15-37); BILIRUBIN,TOTAL 0.5 MG/DL (0.2-1.0); BLOOD UREA NITROGEN 4 mg/dL (7-18); CALCIUM 8.7 MG/DL (8.5-10.1); CARBON DIOXIDE 23 MMOL/L (21-32); CHLORIDE 107 MMOL/L (98-107); CREATINE KINASE 76 U/L (26-308); CREATININE 0.9 MG/DL (0.55-1.30); PHOSPHORUS 3.1 MG/DL (2.5-4.9); POTASSIUM 3.9 MMOL/L (3.5-5.1); SODIUM 140 MMOL/L (136-145)
--- NOTE | 2018-04-09 07:30 | Consultation ---
DATE OF CONSULTATION: 04/07/2018 PULMONARY AND CRITICAL CARE CONSULTATION CONSULTING PHYSICIAN: Elizabeth Cole M.D. REASON FOR CONSULTATION: Ventilator-dependent respiratory failure, drug overdose, suicidal attempt. HISTORY OF PRESENT ILLNESS: This is a young gentleman who apparently took 2 bottles of Flexeril, was drinking alcohol, possible other medications at this time unclear. He came to the emergency room where an NG tube was placed and lavaged, became stuporous, and was intubated for airway protection, now sedated on the ventilator, currently in no acute respiratory distress. He has history of schizoaffective disorder, alcohol intoxication, and was polypharmacy overdose. MEDICATIONS: His pre-hospital medications are noted in the electronic record. FAMILY HISTORY: Unavailable. REVIEW OF SYSTEMS: Unavailable. SURGERIES: Unavailable. ALLERGIES: Noted in the EMR. PHYSICAL EXAMINATION: GENERAL: At the time of my exam, he is sedated, on a vent, currently in no acute distress. VITAL SIGNS: He is afebrile, pulse is 96, respirations 15, blood pressure is 87/35, he is 100% on current vent settings. HEENT: He is normocephalic, atraumatic, orally intubated. Nasal mucosa is moist. NG tube is in place. Oropharynx is moist. LUNGS: Scattered rhonchi. No wheezes. HEART: Regular rate and rhythm without a murmur. ABDOMEN: Soft, nontender. Positive bowel sounds. EXTREMITIES: No edema. NEUROLOGIC: Does not follow commands. LABORATORY AND DIAGNOSTIC DATA: White count , hemoglobin 15.9, platelets are 130,000. Sodium 146, potassium 3.5, chloride 110, bicarbonate 22, BUN 10, creatinine 0.9, glucose is 93. His acetaminophen level is less than 2. Salicylate level was 4.1, it is now 3.2. Serum alcohol was 232 and benzos were positive. His ABG was 7.349, 35, and 157 on current vent settings. A chest x-ray was obtained, which shows an endotracheal tube reduced lung volumes, and KUB was obtained with enteric tube in the stomach and EKG per the ER report, there is ST without QT prolongation. ASSESSMENT AND PLAN: Ventilator-dependent respiratory failure, suicidal attempt with benzodiazepines Flexeril, schizoaffective disorder, obesity. PLAN: Plan for the patient, the patient was sedated, currently on Versed drip that was started in the emergency room. Follow up with ABG, chest x-ray. No overt indication of infection. We will monitor closely. DVT prophylaxis. Weaning protocol will be initiated and psychiatric evaluation as well. IV fluids, n.p.o., and NG tube has been placed. We will continue to follow the patient. Greater than 35 minutes of critical care time was spent with the patient discussing with the nursing staff, reviewing the electronic medical record, orders being written, and . Elizabeth Cole D.O. DR: Seun JOB#: [id number] CC:
--- NOTE | 2018-04-09 08:35 | General Progress Note ---
Assessment/Plan Problem List: (1) Stupor ICD Codes: R40.1 - Stupor SNOMED: 70919938 (2) Respiratory failure ICD Codes: J96.90 - Respiratory failure, unspecified, unspecified whether with hypoxia or hypercapnia SNOMED: 837850733 Qualifiers: Qualified Codes: J96.01 - Acute respiratory failure with hypoxia; J96.02 - Acute respiratory failure with hypercapnia (3) Suicide attempt ICD Codes: T14.91XA - Suicide attempt, initial encounter SNOMED: 59656693 (4) Drug overdose ICD Codes: T50.901A - Poisoning by unspecified drugs, medicaments and biological substances, accidental (unintentional), initial encounter SNOMED: 76498112 Qualifiers: Qualified Codes: T50.902A - Poisoning by unspecified drugs, medicaments and biological substances, intentional self-harm, initial encounter Assessment/Plan extubated, diet, ;mobilize, jpsych eval Subjective Constitutional: Reports: weakness HEENT: Reports: no symptoms Cardiovascular: Reports: no symptoms Respiratory: Reports: no symptoms Gastrointestinal/Abdominal: Reports: no symptoms Genitourinary: Reports: no symptoms Neurologic/Psychiatric: Reports: no symptoms Endocrine: Reports: no symptoms Allergies: Coded Allergies: ERYTHROMYCIN BASE (Verified Allergy, Unknown, 12/18/17) LORAZEPAM (Verified Allergy, Unknown, 04/07/18) Objective Last 24 Hour Vital Signs Date Time Temp Pulse Resp B/P (MAP) Pulse Ox O2 Delivery O2 Flow Rate FiO2 04/09/18 07:00 109 24 128/61 (83) 100 04/09/18 06:00 108 28 119/22 (54) 100 04/09/18 05:00 109 30 121/65 (83) 100 04/09/18 04:00 108 04/09/18 04:00 Room Air 10.0 Venturi Mask 04/09/18 04:00 98.1 108 19 130/96 (107) 99 04/09/18 03:00 110 20 127/63 (84) 100 04/09/18 03:00 28 04/09/18 02:00 109 22 127/65 (85) 100 04/09/18 02:00 22 Mechanical Ventilator 15.0 25 04/09/18 02:00 Venturi Mask 12.0 40 04/09/18 01:10 117 21 25 04/09/18 01:00 117 19 97/77 (84) 98 04/09/18 01:00 19 Mechanical Ventilator 15.0 25 04/09/18 00:00 30 04/09/18 00:00 Room Air 04/09/18 00:00 19 Mechanical Ventilator 15.0 25 04/09/18 00:00 117 19 97/52 (67) 100 04/08/18 23:41 112 21 25 04/08/18 23:27 26 Mechanical Ventilator 25.0 25 04/08/18 23:00 98.8 107 19 102/38 (59) 100 04/08/18 23:00 19 Mechanical Ventilator 15.0 25 04/08/18 22:00 26 Mechanical Ventilator 25.0 04/08/18 22:00 103 26 100/37 (58) 98 04/08/18 21:48 103 24 25 04/08/18 21:30 103 27 103/23 (49) 100 04/08/18 21:00 Mechanical Ventilator 04/08/18 21:00 19 Mechanical Ventilator 25.0 04/08/18 21:00 102 19 110/38 (62) 100 04/08/18 20:00 98.7 105 19 128/51 (76) 99 04/08/18 20:00 110 04/08/18 20:00 19 Mechanical Ventilator 30.0 04/08/18 20:00 Room Air 04/08/18 20:00 30 04/08/18 19:30 109 19 118/64 (82) 100 04/08/18 19:30 104 18 25 04/08/18 19:00 20 30.0 04/08/18 19:00 104 9 110/50 (70) 99 04/08/18 18:55 16 Mechanical Ventilator 04/08/18 18:00 16 Mechanical Ventilator 04/08/18 18:00 105 17 110/61 (77) 100 04/08/18 17:00 106 18 119/63 (81) 100 04/08/18 17:00 16 Mechanical Ventilator 04/08/18 16:37 105 17 25 04/08/18 16:31 15 Mechanical Ventilator 04/08/18 16:00 106 04/08/18 16:00 98.0 106 16 109/54 (72) 98 04/08/18 16:00 Room Air 04/08/18 16:00 30 04/08/18 16:00 98.0 04/08/18 15:00 111 15 112/68 (83) 100 04/08/18 15:00 18 Mechanical Ventilator 04/08/18 14:46 112 20 25 04/08/18 14:09 18 Mechanical Ventilator 04/08/18 14:00 112 19 88/49 (62) 99 04/08/18 13:00 20 Mechanical Ventilator 04/08/18 13:00 109 16 92/42 (59) 98 04/08/18 12:47 111 16 25 04/08/18 12:00 111 04/08/18 12:00 97.8 114 19 83/46 (58) 99 04/08/18 12:00 Room Air 04/08/18 12:00 20 Mechanical Ventilator 04/08/18 12:00 30 04/08/18 11:24 115 19 25 04/08/18 11:08 21 Mechanical Ventilator 04/08/18 11:00 114 16 104/51 (68) 99 04/08/18 10:00 16 Mechanical Ventilator 04/08/18 10:00 114 16 96/39 (58) 99 04/08/18 09:52 25 04/08/18 09:21 114 16 30 04/08/18 09:00 116 16 101/48 (65) 98 04/08/18 09:00 16 Mechanical Ventilator Intake and Output 04/08/18 04/09/18 18:59 06:59 Intake Total 2335 ml 2504 ml Output Total 600 ml 1470 ml Balance 1735 ml 1034 ml Intake IV Total 2335 ml 2504 ml Output Urine Total 600 ml 1470 ml # Bowel Movements 1 Laboratory Tests 04/09/18 05:10: White Blood Count 6.4, Red Blood Count 3.98L, Hemoglobin 12.3L, Hematocrit 36.4L , Mean Corpuscular Volume 92, Mean Corpuscular Hemoglobin 30.9, Mean Corpuscular Hemoglobin Concent 33.8, Red Cell Distribution Width 11.9, Platelet Count 94L, Mean Platelet Volume 8.5, Neutrophils (%) (Auto) , Lymphocytes (%) ( Auto) , Monocytes (%) (Auto) , Eosinophils (%) (Auto) , Basophils (%) (Auto) , Sodium Level 140, Potassium Level 3.9, Chloride Level 107, Carbon Dioxide Level 23, Anion Gap 10, Blood Urea Nitrogen 4L, Creatinine 0.9, Estimat Glomerular Filtration Rate > 60, Glucose Level 104, Calcium Level 8.7, Phosphorus Level 3.1 , Magnesium Level 2.0, Total Bilirubin 0.5, Aspartate Amino Transf (AST/SGOT) 11L, Alanine Aminotransferase (ALT/SGPT) 23, Alkaline Phosphatase 59, Total Creatine Kinase 76, Total Protein 6.3L, Albumin 3.2L, Globulin 3.1, Albumin/ Globulin Ratio 1.0 04/09/18 07:29: Arterial Blood pH 7.427, Arterial Blood Partial Pressure CO2 33.7L, Arterial Blood Partial Pressure O2 69.3L, Arterial Blood HCO3 21.7L, Arterial Blood Oxygen Saturation 94.0L, Arterial Blood Base Excess -1.9, Raul Test Positive Height (Feet): 5 Height (Inches): 10.00 Weight (Pounds): 278 General Appearance: obese EENT: normal ENT inspection Neck: normal alignment Cardiovascular: normal rate Respiratory/Chest: lungs clear Abdomen: non tender Edema: no edema noted Arm (L) Neurologic: mud jack nozzleman II-XII grossly normal Emerson Menjivar MD Apr 09, 2018 08:35
--- NOTE | 2018-04-09 08:38 | Pulmonology Progress Note ---
Assessment/Plan Assessment/Plan Ventilator-dependent respiratory failure suicidal attempt schizoaffective disorder obesity self extubated doing well start diet f/u CXR Subjective Constitutional: Reports: no symptoms Respiratory: Denies: productive cough, shortness of breath Allergies: Coded Allergies: ERYTHROMYCIN BASE (Verified Allergy, Unknown, 12/18/17) LORAZEPAM (Verified Allergy, Unknown, 04/07/18) Objective Last 24 Hour Vital Signs Date Time Temp Pulse Resp B/P (MAP) Pulse Ox O2 Delivery O2 Flow Rate FiO2 04/09/18 07:00 109 24 128/61 (83) 100 04/09/18 06:00 108 28 119/22 (54) 100 04/09/18 05:00 109 30 121/65 (83) 100 04/09/18 04:00 108 04/09/18 04:00 Room Air 10.0 Venturi Mask 04/09/18 04:00 98.1 108 19 130/96 (107) 99 04/09/18 03:00 110 20 127/63 (84) 100 04/09/18 03:00 28 04/09/18 02:00 109 22 127/65 (85) 100 04/09/18 02:00 22 Mechanical Ventilator 15.0 25 04/09/18 02:00 Venturi Mask 12.0 40 04/09/18 01:10 117 21 25 04/09/18 01:00 117 19 97/77 (84) 98 04/09/18 01:00 19 Mechanical Ventilator 15.0 25 04/09/18 00:00 30 04/09/18 00:00 Room Air 04/09/18 00:00 19 Mechanical Ventilator 15.0 25 04/09/18 00:00 117 19 97/52 (67) 100 04/08/18 23:41 112 21 25 04/08/18 23:27 26 Mechanical Ventilator 25.0 25 04/08/18 23:00 98.8 107 19 102/38 (59) 100 04/08/18 23:00 19 Mechanical Ventilator 15.0 25 04/08/18 22:00 26 Mechanical Ventilator 25.0 04/08/18 22:00 103 26 100/37 (58) 98 04/08/18 21:48 103 24 25 04/08/18 21:30 103 27 103/23 (49) 100 04/08/18 21:00 Mechanical Ventilator 04/08/18 21:00 19 Mechanical Ventilator 25.0 04/08/18 21:00 102 19 110/38 (62) 100 04/08/18 20:00 98.7 105 19 128/51 (76) 99 04/08/18 20:00 110 04/08/18 20:00 19 Mechanical Ventilator 30.0 04/08/18 20:00 Room Air 04/08/18 20:00 30 04/08/18 19:30 109 19 118/64 (82) 100 04/08/18 19:30 104 18 25 04/08/18 19:00 20 30.0 04/08/18 19:00 104 9 110/50 (70) 99 04/08/18 18:55 16 Mechanical Ventilator 04/08/18 18:00 16 Mechanical Ventilator 04/08/18 18:00 105 17 110/61 (77) 100 04/08/18 17:00 106 18 119/63 (81) 100 04/08/18 17:00 16 Mechanical Ventilator 04/08/18 16:37 105 17 25 04/08/18 16:31 15 Mechanical Ventilator 04/08/18 16:00 106 04/08/18 16:00 98.0 106 16 109/54 (72) 98 04/08/18 16:00 Room Air 04/08/18 16:00 30 04/08/18 16:00 98.0 04/08/18 15:00 111 15 112/68 (83) 100 04/08/18 15:00 18 Mechanical Ventilator 04/08/18 14:46 112 20 25 04/08/18 14:09 18 Mechanical Ventilator 04/08/18 14:00 112 19 88/49 (62) 99 04/08/18 13:00 20 Mechanical Ventilator 04/08/18 13:00 109 16 92/42 (59) 98 04/08/18 12:47 111 16 25 04/08/18 12:00 111 04/08/18 12:00 97.8 114 19 83/46 (58) 99 04/08/18 12:00 Room Air 04/08/18 12:00 20 Mechanical Ventilator 04/08/18 12:00 30 04/08/18 11:24 115 19 25 04/08/18 11:08 21 Mechanical Ventilator 04/08/18 11:00 114 16 104/51 (68) 99 04/08/18 10:00 16 Mechanical Ventilator 04/08/18 10:00 114 16 96/39 (58) 99 04/08/18 09:52 25 04/08/18 09:21 114 16 30 04/08/18 09:00 116 16 101/48 (65) 98 04/08/18 09:00 16 Mechanical Ventilator Intake and Output 04/08/18 04/09/18 18:59 06:59 Intake Total 2335 ml 2504 ml Output Total 600 ml 1470 ml Balance 1735 ml 1034 ml Intake IV Total 2335 ml 2504 ml Output Urine Total 600 ml 1470 ml # Bowel Movements 1 General Appearance: no acute distress Respiratory/Chest: lungs clear Cardiovascular: normal rate Laboratory Tests 04/09/18 05:10: White Blood Count 6.4, Red Blood Count 3.98L, Hemoglobin 12.3L, Hematocrit 36.4L , Mean Corpuscular Volume 92, Mean Corpuscular Hemoglobin 30.9, Mean Corpuscular Hemoglobin Concent 33.8, Red Cell Distribution Width 11.9, Platelet Count 94L, Mean Platelet Volume 8.5, Neutrophils (%) (Auto) , Lymphocytes (%) ( Auto) , Monocytes (%) (Auto) , Eosinophils (%) (Auto) , Basophils (%) (Auto) , Sodium Level 140, Potassium Level 3.9, Chloride Level 107, Carbon Dioxide Level 23, Anion Gap 10, Blood Urea Nitrogen 4L, Creatinine 0.9, Estimat Glomerular Filtration Rate > 60, Glucose Level 104, Calcium Level 8.7, Phosphorus Level 3.1 , Magnesium Level 2.0, Total Bilirubin 0.5, Aspartate Amino Transf (AST/SGOT) 11L, Alanine Aminotransferase (ALT/SGPT) 23, Alkaline Phosphatase 59, Total Creatine Kinase 76, Total Protein 6.3L, Albumin 3.2L, Globulin 3.1, Albumin/ Globulin Ratio 1.0 04/09/18 07:29: Arterial Blood pH 7.427, Arterial Blood Partial Pressure CO2 33.7L, Arterial Blood Partial Pressure O2 69.3L, Arterial Blood HCO3 21.7L, Arterial Blood Oxygen Saturation 94.0L, Arterial Blood Base Excess -1.9, Raul Test Positive Current Medications Medications (Trade) Dose Ordered Sig/Pritesh Route PRN Reason Start Time Stop Time Status Last Admin Dose Admin Chlorpromazine (Thorazine) 200 mg BID ORAL 04/08/18 18:00 05/08/18 17:59 04/08/18 18:12 Dextrose/ Electrolytes 1,000 ml @ 200 mls/hr Q5H IV 04/08/18 01:00 05/08/18 00:59 04/09/18 03:31 Famotidine (Pepcid I.v.) 20 mg Q24H IVP 04/07/18 20:00 05/07/18 19:59 04/08/18 20:16 Gabapentin (Neurontin) 600 mg THREE TIMES A DAY ORAL 04/08/18 13:00 05/08/18 12:59 04/08/18 13:00 Midazolam HCl 100 ml @ 0 mls/hr Q24H PRN IVPB agitation 04/08/18 08:30 04/15/18 08:29 04/08/18 23:27 Multivitamins 10 ml/Dextrose/ Electrolytes 1,010 ml @ 200 mls/hr Q24H IV 04/07/18 20:00 05/07/18 19:59 04/08/18 21:00 Sertraline HCl (Zoloft) 200 mg DAILY ORAL 04/09/18 09:00 05/09/18 08:59 Alan Olvera MD Apr 09, 2018 08:37
[2018-04-09] MEDS ORDERED: D5 1/2NS w/KCl 20mEq 1,000 ML IV SCH (09:00)
[2018-04-09] MEDS ORDERED: Sertraline 100mg tab ORAL SCH (09:00)
[2018-04-09] MEDS: chlorproMAZINE 25mg tab ORAL SCH ×2 (09:26→18:42)
--- NOTE | 2018-04-09 11:47 | Diagnostic Imaging Report ---
Indication: Cough Technique: One view of the chest Comparison: 04/07/2018 Findings: Endotracheal tube is been removed. Markedly improved inspiration on the current exam. Lungs and pleural spaces are currently clear Impression: Interim extubation No acute process
--- NOTE | 2018-04-09 13:09 | Consultation ---
History of Present Illness General Chief Complaint: Overdose Present Illness HPI 22-year-old man with a long history of schizophrenia and panic d/o. He took a large amount of pills (benzodiazepine and a large amount of alcohol). He called his dad before the attempt and said goodbye. The pt was bib pandemics to the emergency room and he was intubated. his father called the therapist and 911 was called. the pt stated that he has attempted 60 times and he was disappointed that he is not / the pt is anxious and depressed Allergies: Coded Allergies: ERYTHROMYCIN BASE (Verified Allergy, Unknown, 12/18/17) LORAZEPAM (Verified Allergy, Unknown, 04/07/18) Medication History Scheduled Benztropine Mesylate* (Cogentin*), 1 MG PO DAILY, (Reported) Chlorpromazine (Chlorpromazine HCl), 200 MG PO BID, (Reported) Gabapentin* (Gabapentin*), 600 MG ORAL THREE TIMES A DAY, (Reported) Sertraline Hcl* (Sertraline Hcl*), 200 MG ORAL DAILY, (Reported) Temazepam (Temazepam*), 30 MG ORAL BEDTIME, (Reported) Miscellaneous Medications Clonazepam* (Klonopin*), MG ORAL, (Reported) Diazepam* (Diazepam*), MG ORAL, (Reported) Haloperidol* (Haldol*), MG ORAL, (Reported) Quetiapine Fumarate* (Seroquel*), MG ORAL, (Reported) Sertraline Hcl* (Zoloft*), MG ORAL, (Reported) Temazepam* (Restoril*), MG ORAL, (Reported) Patient History History Provided By: Patient, Medical Record, PMD Healthcare decision maker Resuscitation status Full Code Advanced Directive on File No Past Medical/Surgical History Past Medical/Surgical History: (1) Stupor (2) Respiratory failure (3) Drug overdose (4) Suicide attempt Review of Systems Psychiatric: Reports: anxiety, depressed feelings, emotional problems Physical Exam General Appearance: alert Neurologic: oriented x 3, responsive, depressed affect Last 24 Hour Vital Signs Date Time Temp Pulse Resp B/P (MAP) Pulse Ox O2 Delivery O2 Flow Rate FiO2 04/09/18 12:00 Room Air 10.0 Venturi Mask 04/09/18 12:00 98.1 108 16 129/81 (97) 97 04/09/18 11:00 107 17 132/66 (88) 91 04/09/18 10:00 107 17 132/66 (88) 91 04/09/18 10:00 108 17 118/71 (87) 97 04/09/18 09:00 108 23 118/92 (101) 98 04/09/18 08:00 Room Air 10.0 Venturi Mask 04/09/18 08:00 98.5 105 27 121/71 (88) 9 04/09/18 08:00 102 04/09/18 07:00 109 24 128/61 (83) 100 04/09/18 06:00 108 28 119/22 (54) 100 04/09/18 05:00 109 30 121/65 (83) 100 04/09/18 04:00 108 04/09/18 04:00 Room Air 10.0 Venturi Mask 04/09/18 04:00 98.1 108 19 130/96 (107) 99 04/09/18 03:00 110 20 127/63 (84) 100 04/09/18 03:00 28 04/09/18 02:00 109 22 127/65 (85) 100 04/09/18 02:00 22 Mechanical Ventilator 15.0 25 04/09/18 02:00 Venturi Mask 12.0 40 04/09/18 01:10 117 21 25 04/09/18 01:00 117 19 97/77 (84) 98 04/09/18 01:00 19 Mechanical Ventilator 15.0 25 04/09/18 00:00 30 04/09/18 00:00 Room Air 04/09/18 00:00 19 Mechanical Ventilator 15.0 25 04/09/18 00:00 117 19 97/52 (67) 100 04/08/18 23:41 112 21 25 04/08/18 23:27 26 Mechanical Ventilator 25.0 25 04/08/18 23:00 98.8 107 19 102/38 (59) 100 04/08/18 23:00 19 Mechanical Ventilator 15.0 25 04/08/18 22:00 26 Mechanical Ventilator 25.0 04/08/18 22:00 103 26 100/37 (58) 98 04/08/18 21:48 103 24 25 04/08/18 21:30 103 27 103/23 (49) 100 04/08/18 21:00 Mechanical Ventilator 04/08/18 21:00 19 Mechanical Ventilator 25.0 04/08/18 21:00 102 19 110/38 (62) 100 04/08/18 20:00 98.7 105 19 128/51 (76) 99 04/08/18 20:00 110 04/08/18 20:00 19 Mechanical Ventilator 30.0 04/08/18 20:00 Room Air 04/08/18 20:00 30 04/08/18 19:30 109 19 118/64 (82) 100 04/08/18 19:30 104 18 25 04/08/18 19:00 20 30.0 04/08/18 19:00 104 9 110/50 (70) 99 04/08/18 18:55 16 Mechanical Ventilator 04/08/18 18:00 16 Mechanical Ventilator 04/08/18 18:00 105 17 110/61 (77) 100 04/08/18 17:00 106 18 119/63 (81) 100 04/08/18 17:00 16 Mechanical Ventilator 04/08/18 16:37 105 17 25 04/08/18 16:31 15 Mechanical Ventilator 04/08/18 16:00 106 04/08/18 16:00 98.0 106 16 109/54 (72) 98 04/08/18 16:00 Room Air 04/08/18 16:00 30 04/08/18 16:00 98.0 04/08/18 15:00 111 15 112/68 (83) 100 04/08/18 15:00 18 Mechanical Ventilator 04/08/18 14:46 112 20 25 04/08/18 14:09 18 Mechanical Ventilator 04/08/18 14:00 112 19 88/49 (62) 99 Intake and Output 04/08/18 04/09/18 19:00 07:00 Intake Total 2375 ml 2464 ml Output Total 600 ml 1620 ml Balance 1775 ml 844 ml IV Total 2375 ml 2464 ml Output Urine Total 600 ml 1620 ml # Bowel Movements 1 Laboratory Tests Test 04/09/18 05:10 04/09/18 07:29 White Blood Count 6.4 K/UL (4.8-10.8) Red Blood Count 3.98 M/UL (4.70-6.10) L Hemoglobin 12.3 G/DL (14.2-18.0) L Hematocrit 36.4 % (42.0-52.0) L Mean Corpuscular Volume 92 FL (80-99) Mean Corpuscular Hemoglobin 30.9 PG (27.0-31.0) Mean Corpuscular Hemoglobin Concent 33.8 G/DL (32.0-36.0) Red Cell Distribution Width 11.9 % (11.6-14.8) Platelet Count 94 K/UL (150-450) L Mean Platelet Volume 8.5 FL (6.5-10.1) Neutrophils (%) (Auto) % (45.0-75.0) Lymphocytes (%) (Auto) % (20.0-45.0) Monocytes (%) (Auto) % (1.0-10.0) Eosinophils (%) (Auto) % (0.0-3.0) Basophils (%) (Auto) % (0.0-2.0) Sodium Level 140 MMOL/L (136-145) Potassium Level 3.9 MMOL/L (3.5-5.1) Chloride Level 107 MMOL/L (98-107) Carbon Dioxide Level 23 MMOL/L (21-32) Anion Gap 10 mmol/L (5-15) Blood Urea Nitrogen 4 mg/dL (7-18) L Creatinine 0.9 MG/DL (0.55-1.30) Estimat Glomerular Filtration Rate > 60 mL/min (>60) Glucose Level 104 MG/DL (74-106) Calcium Level 8.7 MG/DL (8.5-10.1) Phosphorus Level 3.1 MG/DL (2.5-4.9) Magnesium Level 2.0 MG/DL (1.8-2.4) Total Bilirubin 0.5 MG/DL (0.2-1.0) Aspartate Amino Transf (AST/SGOT) 11 U/L (15-37) L Alanine Aminotransferase (ALT/SGPT) 23 U/L (12-78) Alkaline Phosphatase 59 U/L (46-116) Total Creatine Kinase 76 U/L (26-308) Total Protein 6.3 G/DL (6.4-8.2) L Albumin 3.2 G/DL (3.4-5.0) L Globulin 3.1 g/dL Albumin/Globulin Ratio 1.0 (1.0-2.7) Arterial Blood pH 7.427 (7.350-7.450) Arterial Blood Partial Pressure CO2 33.7 mmHg (35.0-45.0) L Arterial Blood Partial Pressure O2 69.3 mmHg (75.0-100.0) L Arterial Blood HCO3 21.7 mmol/L (22.0-26.0) L Arterial Blood Oxygen Saturation 94.0 % (95-100) L Arterial Blood Base Excess -1.9 (-2-2) Raul Test Positive Height (Feet): 5 Height (Inches): 10.00 Weight (Pounds): 278 Medications Current Medications Medications (Trade) Dose Ordered Sig/Pritesh Route PRN Reason Start Time Stop Time Status Last Admin Dose Admin Chlorpromazine (Thorazine) 200 mg BID ORAL 04/08/18 18:00 05/08/18 17:59 04/09/18 09:26 Dextrose/ Electrolytes 1,000 ml @ 75 mls/hr [id number] IV 04/09/18 09:00 05/09/18 08:59 04/09/18 09:06 Famotidine (Pepcid I.v.) 20 mg Q24H IVP 04/09/18 20:00 05/09/18 19:59 Gabapentin (Neurontin) 600 mg THREE TIMES A DAY ORAL 04/08/18 13:00 05/08/18 12:59 04/09/18 09:05 Midazolam HCl 100 ml @ 0 mls/hr Q24H PRN IVPB agitation 04/08/18 08:30 04/15/18 08:29 04/08/18 23:27 Multivitamins 10 ml/Dextrose/ Electrolytes 1,010 ml @ 200 mls/hr Q24H IV 04/07/18 20:00 05/07/18 19:59 04/08/18 21:00 Sertraline HCl (Zoloft) 200 mg DAILY ORAL 04/09/18 09:00 05/09/18 08:59 04/09/18 09:05 Assessment/Plan Problem List: (1) Schizophrenia ICD Codes: F20.9 - Schizophrenia, unspecified SNOMED: 50087041 (2) MDD (major depressive disorder) ICD Codes: F32.9 - Major depressive disorder, single episode, unspecified SNOMED: 274351828 Status: stable Assessment/Plan transfer to psych unit when medically stable. valium 10mg po q6hr prn zoloft 50mg po qam. pt agrees to go voluntary Luis Otero MD Apr 09, 2018 13:09
[2018-04-09] MEDS: MULTIVITAMIN IV SCH (20:46)
[2018-04-09] MEDS: D5 IV SCH (20:46)
[2018-04-09] MEDS: [UNRECOGNIZED DRUG - OTHER] IV SCH (20:46)
[2018-04-09] MEDS: KCL IV SCH (20:46)
[2018-04-10] VITALS (7 sets, daily range): BP systolic 121–143; BP diastolic 76–99
[2018-04-10] MEDS: D5 1/2NS w/KCl 20mEq 1,000 ML IV SCH (06:28)
[2018-04-10] MEDS: chlorproMAZINE 25mg tab ORAL SCH ×2 (09:06→17:34)
[2018-04-10] MEDS: Sertraline 100mg tab ORAL SCH (09:07)
[2018-04-10 09:30] LABS: BASOPHILS % (AUTO) 0.7 % (0.0-2.0); HEMATOCRIT 40.8 % (42.0-52.0); HEMOGLOBIN 13.6 G/DL (14.2-18.0); LYMPHOCYTES % (AUTO) 19.1 % (20.0-45.0); MEAN CORPUSCULAR VOLUME 92 FL (80-99); MONOCYTES % (AUTO) 8.8 % (1.0-10.0); NEUTROPHILS % (AUTO) 68.4 % (45.0-75.0); PLATELET COUNT 107 K/UL (150-450); RED BLOOD COUNT 4.45 M/UL (4.70-6.10); WHITE BLOOD COUNT 5.3 K/UL (4.8-10.8)
[2018-04-10 09:44] LABS: ANION GAP 9 mmol/L (5-15); BLOOD UREA NITROGEN 6 mg/dL (7-18); CALCIUM 9.7 MG/DL (8.5-10.1); CARBON DIOXIDE 28 MMOL/L (21-32); CHLORIDE 103 MMOL/L (98-107); CREATINE KINASE 53 U/L (26-308); POTASSIUM 4.4 MMOL/L (3.5-5.1); SODIUM 140 MMOL/L (136-145)
--- NOTE | 2018-04-10 10:11 | General Progress Note ---
Assessment/Plan Problem List: (1) Stupor ICD Codes: R40.1 - Stupor SNOMED: 76602101 (2) Respiratory failure ICD Codes: J96.90 - Respiratory failure, unspecified, unspecified whether with hypoxia or hypercapnia SNOMED: 730399601 Qualifiers: Qualified Codes: J96.01 - Acute respiratory failure with hypoxia; J96.02 - Acute respiratory failure with hypercapnia (3) Suicide attempt ICD Codes: T14.91XA - Suicide attempt, initial encounter SNOMED: 60394332 (4) Drug overdose ICD Codes: T50.901A - Poisoning by unspecified drugs, medicaments and biological substances, accidental (unintentional), initial encounter SNOMED: 91601516 Qualifiers: Qualified Codes: T50.902A - Poisoning by unspecified drugs, medicaments and biological substances, intentional self-harm, initial encounter Assessment/Plan extubated, diet, ;mobilize, jpsych eval needs transfer to psych unit Subjective HEENT: Reports: no symptoms Cardiovascular: Reports: no symptoms Respiratory: Reports: no symptoms Gastrointestinal/Abdominal: Reports: no symptoms Genitourinary: Reports: no symptoms Neurologic/Psychiatric: Reports: pre-existing deficit Endocrine: Reports: no symptoms Hematologic/Lymphatic: Reports: no symptoms Allergies: Coded Allergies: ERYTHROMYCIN BASE (Verified Allergy, Unknown, 12/18/17) LORAZEPAM (Verified Allergy, Unknown, 04/07/18) Objective Last 24 Hour Vital Signs Date Time Temp Pulse Resp B/P (MAP) Pulse Ox O2 Delivery O2 Flow Rate FiO2 04/10/18 08:00 97.2 96 19 131/79 (96) 98 04/10/18 04:00 97.4 94 18 121/82 (95) 96 04/10/18 00:00 98.4 101 18 125/76 (92) 96 04/09/18 21:00 Room Air Room Air 04/09/18 20:00 98.6 110 20 133/78 (96) 97 04/09/18 16:34 99.3 104 20 116/71 (86) 97 04/09/18 14:00 109 27 128/70 (89) 97 04/09/18 13:00 117 27 156/50 (85) 97 04/09/18 12:00 Room Air 10.0 Venturi Mask 04/09/18 12:00 111 04/09/18 12:00 98.1 108 16 129/81 (97) 97 04/09/18 11:00 107 17 132/66 (88) 91 Intake and Output 04/09/18 04/10/18 18:59 06:59 Intake Total 2324 ml 1600 ml Output Total 2127 ml 3000 ml Balance 197 ml -1400 ml Intake Oral 1480 ml 1600 ml IV Total 844 ml Output Urine Total 2127 ml 3000 ml # Bowel Movements 1 Laboratory Tests 04/10/18 08:55: White Blood Count 5.3, Red Blood Count 4.45L, Hemoglobin 13.6L, Hematocrit 40.8L , Mean Corpuscular Volume 92, Mean Corpuscular Hemoglobin 30.6, Mean Corpuscular Hemoglobin Concent 33.3, Red Cell Distribution Width 12.0, Platelet Count 107L, Mean Platelet Volume 8.9, Neutrophils (%) (Auto) 68.4, Lymphocytes ( %) (Auto) 19.1L, Monocytes (%) (Auto) 8.8, Eosinophils (%) (Auto) 3.0, Basophils (%) (Auto) 0.7, Sodium Level 140, Potassium Level 4.4, Chloride Level 103, Carbon Dioxide Level 28, Anion Gap 9, Blood Urea Nitrogen 6L, Creatinine 1.0, Estimat Glomerular Filtration Rate > 60, Glucose Level 78, Calcium Level 9.7, Total Creatine Kinase 53 Height (Feet): 5 Height (Inches): 10.00 Weight (Pounds): 278 General Appearance: no apparent distress EENT: normal ENT inspection Neck: normal alignment Cardiovascular: normal rate Respiratory/Chest: lungs clear Abdomen: non tender Neurologic: natural resources faculty member II-XII grossly normal Emerson Menjivar MD Apr 10, 2018 10:11
--- NOTE | 2018-04-10 18:39 | Pulmonology Progress Note ---
Assessment/Plan Assessment/Plan Ventilator-dependent respiratory failure suicidal attempt schizoaffective disorder obesity psych recommendations doing well start diet Subjective Constitutional: Reports: no symptoms HEENT: Repors: no symptoms Cardiovascular: Reports: no symptoms Allergies: Coded Allergies: ERYTHROMYCIN BASE (Verified Allergy, Unknown, 12/18/17) LORAZEPAM (Verified Allergy, Unknown, 04/07/18) Subjective no events toelrating po no cp nv or bleeding Objective Last 24 Hour Vital Signs Date Time Temp Pulse Resp B/P (MAP) Pulse Ox O2 Delivery O2 Flow Rate FiO2 04/10/18 16:00 97.1 105 19 131/84 (100) 96 04/10/18 12:00 98.0 91 18 143/92 (109) 95 04/10/18 09:00 Room Air Room Air 04/10/18 08:00 97.2 96 19 131/79 (96) 98 04/10/18 04:00 97.4 94 18 121/82 (95) 96 04/10/18 00:00 98.4 101 18 125/76 (92) 96 04/09/18 21:00 Room Air Room Air 04/09/18 20:00 98.6 110 20 133/78 (96) 97 Intake and Output 04/09/18 04/10/18 19:00 07:00 Intake Total 2124 ml 1600 ml Output Total 1927 ml 3000 ml Balance 197 ml -1400 ml Intake Oral 1480 ml 1600 ml IV Total 644 ml Output Urine Total 1927 ml 3000 ml # Bowel Movements 1 General Appearance: WD/WN Respiratory/Chest: lungs clear, normal breath sounds Cardiovascular: normal rate, regular rhythm, regularly irregular Abdomen: normal bowel sounds, no organomegaly Extremities: no cyanosis Neurologic/Psychiatric: abnormal gait, oriented x 3 Laboratory Tests 04/10/18 08:55: White Blood Count 5.3, Red Blood Count 4.45L, Hemoglobin 13.6L, Hematocrit 40.8L , Mean Corpuscular Volume 92, Mean Corpuscular Hemoglobin 30.6, Mean Corpuscular Hemoglobin Concent 33.3, Red Cell Distribution Width 12.0, Platelet Count 107L, Mean Platelet Volume 8.9, Neutrophils (%) (Auto) 68.4, Lymphocytes ( %) (Auto) 19.1L, Monocytes (%) (Auto) 8.8, Eosinophils (%) (Auto) 3.0, Basophils (%) (Auto) 0.7, Sodium Level 140, Potassium Level 4.4, Chloride Level 103, Carbon Dioxide Level 28, Anion Gap 9, Blood Urea Nitrogen 6L, Creatinine 1.0, Estimat Glomerular Filtration Rate > 60, Glucose Level 78, Calcium Level 9.7, Total Creatine Kinase 53 Current Medications Medications (Trade) Dose Ordered Sig/Pritesh Route PRN Reason Start Time Stop Time Status Last Admin Dose Admin Chlorpromazine (Thorazine) 200 mg BID ORAL 04/09/18 18:00 05/08/18 17:59 04/10/18 17:34 Clotrimazole (Lotrimin) 1 applic THREE TIMES A DAY TOPIC 04/10/18 13:00 05/10/18 12:59 04/10/18 17:34 Diazepam (Valium) 10 mg Q6H PRN ORAL For Anxiety 04/09/18 19:00 04/16/18 18:59 04/10/18 15:16 Famotidine (Pepcid I.v.) 20 mg Q24H IVP 04/09/18 20:00 05/09/18 19:59 04/09/18 20:53 Gabapentin (Neurontin) 600 mg THREE TIMES A DAY ORAL 04/09/18 18:00 05/08/18 12:59 04/10/18 17:34 Multivitamins 10 ml/Dextrose/ Electrolytes 1,010 ml @ 200 mls/hr Q24H IV 04/09/18 20:00 05/07/18 19:59 04/09/18 20:46 Sertraline HCl (Zoloft) 200 mg DAILY ORAL 04/10/18 09:00 05/09/18 08:59 04/10/18 09:07 Elizabeth Cole DO Apr 10, 2018 18:39
[2018-04-10] MEDS: D5 IV SCH (20:17)
[2018-04-10] MEDS: [UNRECOGNIZED DRUG - OTHER] IV SCH (20:17)
[2018-04-10] MEDS: MULTIVITAMIN IV SCH (20:17)
[2018-04-10] MEDS: KCL IV SCH (20:17)
[2018-04-11 04:00] VITALS: BP 132/77
[2018-04-11 08:00] VITALS: BP 119/77
[2018-04-11] MEDS: Sertraline 100mg tab ORAL SCH (09:02)
[2018-04-11] MEDS: chlorproMAZINE 25mg tab ORAL SCH ×2 (09:36→18:02)
[2018-04-11 12:00] VITALS: BP 121/68
--- NOTE | 2018-04-11 12:51 | General Progress Note ---
Assessment/Plan Problem List: (1) Schizophrenia ICD Codes: F20.9 - Schizophrenia, unspecified SNOMED: 36839388 (2) MDD (major depressive disorder) ICD Codes: F32.9 - Major depressive disorder, single episode, unspecified SNOMED: 750702599 Assessment/Plan transfer to psych unit when medically stable. valium 10mg po q6hr prn zoloft 50mg po qam. pt agrees to go voluntary Subjective Neurologic/Psychiatric: Reports: anxiety, depressed, emotional problems Allergies: Coded Allergies: ERYTHROMYCIN BASE (Verified Allergy, Unknown, 12/18/17) LORAZEPAM (Verified Allergy, Unknown, 04/07/18) Objective Last 24 Hour Vital Signs Date Time Temp Pulse Resp B/P (MAP) Pulse Ox O2 Delivery O2 Flow Rate FiO2 04/11/18 12:43 97.0 04/11/18 12:00 97.5 81 16 121/68 (85) 98 04/11/18 09:00 Room Air Room Air 04/11/18 08:00 97.0 93 18 119/77 (91) 99 04/11/18 04:00 97.9 98 18 132/77 (95) 100 04/10/18 23:55 98.0 99 20 137/99 (112) 99 04/10/18 21:00 Room Air Room Air 04/10/18 20:00 97.9 98 18 134/81 (98) 98 04/10/18 16:00 97.1 105 19 131/84 (100) 96 Intake and Output 04/10/18 04/11/18 18:59 06:59 Intake Total 1790 ml 2685 ml Output Total 2000 ml Balance 1790 ml 685 ml Intake Oral 1600 ml IV Total 900 ml 1085 ml Other 890 ml Output Urine Total 2000 ml # Voids 3 # Bowel Movements 1 Height (Feet): 5 Height (Inches): 10.00 Weight (Pounds): 270 General Appearance: no apparent distress, alert, overweight Neurologic: oriented x 3, responsive, depressed affect Lius Otero MD Apr 11, 2018 12:51
[2018-04-11] MEDS ORDERED: DIAZEPAM10 MG ORAL (15:48)
[2018-04-11 16:00] VITALS: BP 125/69
[2018-04-11 16:38] LABS: APPEARANCE,URINE CLEAR; BILIRUBIN, URINE NEGATIVE (NEGATIVE); COLOR,URINE PALE YELLOW; GLUCOSE, URINE (UA) NEGATIVE (NEGATIVE); KETONES,URINE NEGATIVE (NEGATIVE); LEUKOCYTE ESTERASE ,URINE NEGATIVE (NEGATIVE); NITRITE,URINE NEGATIVE (NEGATIVE); PH,URINE 5 (4.5-8.0); PROTEIN,URINE NEGATIVE (NEGATIVE); UROBILINOGEN,URINE NORMAL MG/DL (0.0-1.0)
--- NOTE | 2018-04-11 19:00 | Discharge Summary ---
DATE OF ADMISSION: 04/07/2018 DATE OF DISCHARGE: 04/11/2018 PERTINENT HISTORY: The patient took a drug overdose and presented with obtundation and was intubated in the emergency room. He took apparently large amount of benzodiazepines and alcohol. There is a history of psychiatric problems. PERTINENT PHYSICAL FINDINGS: GENERAL: The patient was intubated and sedated. HEENT: There was mild periorbital edema. LUNGS: Clear. HEART: Regular rhythm. ABDOMEN: Soft. EXTREMITIES: No edema. NEUROLOGIC: He is arousable. Moves all extremities. COURSE IN THE HOSPITAL: The patient was treated for drug overdose, intubated to protect his airway, hydrated. He was subsequently extubated without problem. He was seen by Psychiatry and the PET team and agreed to go voluntarily to a psychiatric facility, and was discharged to the psychiatric facility in stable condition. FINAL DIAGNOSES: 1. Drug and alcohol overdose with benzodiazepines. 2. History of schizophrenia. 3. Acute respiratory failure. 4. Suicidal ideation. DISCHARGE DISPOSITION: [facility] in [place]. DIET: Regular. DISCHARGE MEDICATIONS: Medications to be assessed by the psychiatrist. Emerson Menjivar M.D. DR: JUANITA JOB#: [id number] CC:
== END 2018-04-11 20:10 | DRG 817 ==
LOC: EDBD 10:50 → EMR 11:08 → ICU 13:29 → EDBEDREQ 16:32 → 4E 04-09 15:40
PROC: 5A1935Z Respiratory Ventilation, Less than 24 Consecutive Hours (ICD-10-PCS; principal; 2018-04-07)
PROC: 0BH17EZ Insertion of Endotracheal Airway into Trachea, Via Natural or Artificial Opening (ICD-10-PCS; 2018-04-07)
PROC: 5A1935Z Respiratory Ventilation, Less than 24 Consecutive Hours (ICD-10-PCS; 2018-04-08)
DX: T42.4X2A Poisoning by benzodiazepines, intentional self-harm, initial encounter (principal); J96.90 Respiratory failure, unspecified, unspecified whether with hypoxia or hypercapnia; R45.851 Suicidal ideations; I95.9 Hypotension, unspecified; F25.9 Schizoaffective disorder, unspecified; Z68.41 Body mass index [BMI] 40.0-44.9, adult; T51.0X2A Toxic effect of ethanol, intentional self-harm, initial encounter; T48.1X2A Poisoning by skeletal muscle relaxants [neuromuscular blocking agents], intentional self-harm, initial encounter; R40.1 Stupor; F41.0 Panic disorder [episodic paroxysmal anxiety]; E66.9 Obesity, unspecified; Z88.1 Allergy status to other antibiotic agents; Z88.8 Allergy status to other drugs, medicaments and biological substances
CPT/HCPCS: 31500; 36415; 36600; 51702; 71045; 74018; 80048; 80053; 80307; 80329; 81001; 81003; 82550; 82803; 83735; 84100; 85025; 87070; 87205; 93005; 94002; 94003; 94664; 96360; 99291; 99292; J2250